=== PATIENT | male | born 1980 ===

== ENCOUNTER 2020-09-05 10:31 | Inpatient (IN) | payer SELFPAY ==
[2020-09-05 11:03] LABS: Basophils # (Auto) 0.1 K/mm3 (0.0-0.1); Basophils % (Auto) 0.4 % (0.0-1.8); Eosinophils # (Auto) 0.1 K/mm3 (0.0-0.4); Eosinophils % (Auto) 0.6 % (0.0-4.3); Hematocrit 47.3 % (35.5-45.6); Hemoglobin 16.4 gm/dl (11.8-15.2); Lymphocytes # (Auto) 1.9 K/mm3 (1.2-5.4); Lymphocytes % (Auto) 13.1 % (13.4-35.0); Mean Corpuscular HGB Conc 35 % (32-34); Mean Corpuscular Volume 82 fl (84-94); Monocytes # (Auto) 1.1 K/mm3 (0.0-0.8); Monocytes % (Auto) 7.1 % (0.0-7.3); Platelet Count 238 K/mm3 (140-440); Red Blood Count 5.77 M/mm3 (3.65-5.03); Red Cell Distribution Width 13.2 % (13.2-15.2)
[2020-09-05 11:24] LABS: Alanine Aminotransferase 26 units/L (7-56); Albumin 4.4 g/dL (3.9-5); BUN/Creatinine Ratio 13; Blood Urea Nitrogen 10 mg/dL (9-20); Calcium 9.7 mg/dL (8.4-10.2); Hemolysis Index 6
[2020-09-05] MEDS ORDERED: MORPHINE 2 MG/1 ML INJ IV ONE (12:35)
[2020-09-05] MEDS ORDERED: PANTOPRAZOLE 40 MG INJ IV ONE (12:35)
[2020-09-05] MEDS ORDERED: ONDANSETRON 4 MG/2 ML INJ IV ONE (12:35)
[2020-09-05] MEDS ORDERED: SODIUM CHLORIDE 0.9% 1000 ML 1,000 ML IV ONE (12:35)
--- NOTE | 2020-09-05 12:41 | Emergency Department Report ---
ED Abdominal Pain HPI - General Chief Complaint: Abdominal Pain Stated Complaint: LOW ABDOMINAL PAIN Time Seen by Provider: 09/05/20 12:29 Source: patient Mode of arrival: Ambulatory Limitations: No Limitations - History of Present Illness Initial Comments: This is a Polish-speaking 40-year-old man who presents with acute abdominal pain beginning at about 4 in the afternoon yesterday. It has been constant and persistent. Patient states she has had no bowel movement. He does not complain of nausea nor vomiting. He does not report fever or chills. The abdominal pain was somewhat radiating to his groin area. He has no history of kidney stone. He stated that he heard a lot of gas passing in his abdominal cavity, apparently borborygmus again no bowel movement and no vomiting. Patient denies previous abdominal surgery. States he takes no routine medications. He denies chronic medical problems. MD Complaint: abdominal pain -: Sudden Location: LLQ Radiation: other (Scrotal) Severity: severe Quality: aching Consistency: constant Improves With: nothing Worsens With: other (Did not attempt to eat) Associated Symptoms: denies other symptoms - Related Data Allergies Allergy/AdvReac Type Severity Reaction Status Date / Time No Known Allergies Allergy Unverified 09/05/20 10:48 ED Review of Systems ROS: Stated complaint: LOW ABDOMINAL PAIN Other details as noted in HPI Constitutional: denies: chills, fever Eyes: denies: eye pain, vision change ENT: denies: ear pain, throat pain Respiratory: denies: cough, shortness of breath, wheezing Cardiovascular: denies: chest pain, palpitations Endocrine: no symptoms reported Gastrointestinal: abdominal pain. denies: nausea, diarrhea Genitourinary: denies: urgency, dysuria Musculoskeletal: denies: back pain, joint swelling, arthralgia Skin: denies: rash, lesions Neurological: denies: headache, weakness, paresthesias Psychiatric: denies: anxiety, depression Hematological/Lymphatic: denies: easy bleeding, easy bruising ED Past Medical Hx - Past Medical History Previous Medical History?: No - Surgical History Past Surgical History?: No - Social History Substance Use Type: None ED Physical Exam - General Limitations: No Limitations General appearance: alert, other (Uncomfortable) - Head Head exam: Present: atraumatic, normocephalic - Eye Eye exam: Present: normal appearance. Absent: scleral icterus - ENT ENT exam: Present: mucous membranes moist - Neck Neck exam: Present: normal inspection. Absent: meningismus - Respiratory Respiratory exam: Present: normal lung sounds bilaterally. Absent: respiratory distress - Cardiovascular Cardiovascular Exam: Present: regular rate, normal rhythm. Absent: systolic murmur, diastolic murmur, rubs, gallop - GI/Abdominal GI/Abdominal exam: Present: soft, distended, tenderness (point of maximum intensity left lower quadrant), rebound (Appears to have rebound), normal bowel sounds - Rectal Rectal exam: Present: deferred - Extremities Exam Extremities exam: Present: normal inspection - Back Exam Back exam: Present: normal inspection - Neurological Exam Neurological exam: Present: alert, oriented X3, CN II-XII intact. Absent: motor sensory deficit - Psychiatric Psychiatric exam: Present: normal affect, normal mood - Skin Skin exam: Present: warm, dry, intact, normal color. Absent: rash ED Course Vital Signs 09/05/20 09/05/20 09/05/20 12:41 12:45 12:47 Temperature Pulse Rate 77 74 Respiratory 15 19 18 Rate Blood Pressure 125/90 O2 Sat by Pulse 98 100 Oximetry 09/05/20 09/05/20 09/05/20 13:00 13:07 13:09 Temperature 97.6 F Pulse Rate 78 Respiratory 11 L 18 Rate Blood Pressure 131/89 O2 Sat by Pulse 99 99 Oximetry - Reevaluation(s) Reevaluation #1: Discussed with GI. They recommend admission for IV antibiotics and further care. Dr. Hurtado hospitalist informed. 09/05/20 15:08 ED Medical Decision Making - Lab Data Result diagrams: 09/05/20 10:55 09/05/20 10:55 Laboratory Results - last 24 hr 09/05/20 09/05/20 09/05/20 10:55 10:55 12:53 WBC 14.8 H RBC 5.77 H Hgb 16.4 H Hct 47.3 H MCV 82 L MCH 29 MCHC 35 H RDW 13.2 Plt Count 238 Lymph % (Auto) 13.1 L [place] % (Auto) 7.1 Eos % (Auto) 0.6 Baso % (Auto) 0.4 Lymph # (Auto) 1.9 [place] # (Auto) 1.1 H Eos # (Auto) 0.1 Baso # (Auto) 0.1 Seg Neutrophils % 78.8 H Seg Neutrophils # 11.6 H PT INR APTT Sodium 137 Potassium 4.7 Chloride 96.7 L Carbon Dioxide 31 H Anion Gap 14 BUN 10 Creatinine 0.8 Estimated GFR > 60 BUN/Creatinine Ratio 13 Glucose 92 Calcium 9.7 Magnesium Total Bilirubin 0.50 AST 17 ALT 26 Alkaline Phosphatase 78 Total Protein 7.6 Albumin 4.4 Albumin/Globulin Ratio 1.4 Lipase Urine Color Urine Turbidity Urine pH Ur Specific [place] Urine Protein Urine Glucose (UA) Urine Ketones Urine Blood Urine Nitrite Urine Bilirubin Urine Urobilinogen Ur Leukocyte Esterase Urine WBC (Auto) Urine RBC (Auto) Blood Type A POSITIVE Antibody Screen Negative 09/05/20 09/05/20 09/05/20 12:53 12:53 13:29 WBC RBC Hgb Hct MCV MCH MCHC RDW Plt Count Lymph % (Auto) [place] % (Auto) Eos % (Auto) Baso % (Auto) Lymph # (Auto) [place] # (Auto) Eos # (Auto) Baso # (Auto) Seg Neutrophils % Seg Neutrophils # PT 13.4 INR 1.00 APTT 33.7 Sodium Potassium Chloride Carbon Dioxide Anion Gap BUN Creatinine Estimated GFR BUN/Creatinine Ratio Glucose Calcium Magnesium 1.90 Total Bilirubin AST ALT Alkaline Phosphatase Total Protein Albumin Albumin/Globulin Ratio Lipase 25 Urine Color Yellow Urine Turbidity Clear Urine pH 8.0 H Ur Specific [place] 1.014 Urine Protein <15 mg/dl Urine Glucose (UA) Neg Urine Ketones Neg Urine Blood Neg Urine Nitrite Neg Urine Bilirubin Neg Urine Urobilinogen < 2.0 Ur Leukocyte Esterase Neg Urine WBC (Auto) < 1.0 Urine RBC (Auto) 3.0 Blood Type Antibody Screen - Radiology Data Radiology results: report reviewed, image reviewed FINDINGS: CT abdomen with contrast demonstrates normal appearance of the liver, spleen, pancreas, kidneys, and adrenal glands. Gallbladder appears grossly unremarkable. No biliary dilatation. No hydronephrosis or renal mass. CT pelvis with contrast demonstrates normal appearance of the appendix. There is moderate inflammatory change involving the mid sigmoid colon consistent with acute diverticulitis. Mild to moderate diverticulosis is present throughout the sigmoid colon. No evidence for diverticular abscess, free fluid, or free air. The remainder of the GI tract is unremarkable. Visualized lung bases are clear. No acute osseous abnormality. IMPRESSION: 1. Acute diverticulitis involving the mid sigmoid colon. No evidence of diverticular abscess. 2. Moderate diverticulosis throughout the sigmoid colon. 3. No other significant finding. Critical care attestation.: If time is entered above; I have spent that time in minutes in the direct care of this critically ill patient, excluding procedure time. ED Disposition Clinical Impression: Sigmoid diverticulitis Disposition: OP ADMIT IP TO THIS HOSP Is pt being admited?: Yes Does the pt Need Aspirin: No Condition: Stable Time of Disposition: 15:08
--- NOTE | 2020-09-05 13:19 | XRay Report ---
CHEST 1 VIEW INDICATION / CLINICAL INFORMATION: hypertension. COMPARISON: None available. FINDINGS: SUPPORT DEVICES: None. HEART / MEDIASTINUM: No significant abnormality. LUNGS / PLEURA: No significant pulmonary or pleural abnormality. No pneumothorax. ADDITIONAL FINDINGS: No significant additional findings. IMPRESSION: 1. No acute findings. Signer Name: Tiffany Garcia MD Signed: 09/05/2020 1:14 PM Workstation Name: [id number]
[2020-09-05 13:22] LABS: Partial Thromboplastin Time 33.7 Sec. (24.2-36.6)
[2020-09-05 13:42] LABS: Bilirubin,Urine NEG (Negative); Blood,Urine NEG (Negative); Color,Urine Yellow (Yellow); Protein,Urine <15 mg/dL mg/dL (Negative); Urobilinogen,Urine < 2.0 mg/dL (<2.0); WBC,Urine < 1.0 /HPF (0.0-6.0)
[2020-09-05] MEDS ORDERED: PIPERACIL/TAZOBACTA 4.5/NS 100 4.5 GM/100 ML VIAL IV ONE (13:43)
--- NOTE | 2020-09-05 14:36 | Cat Scan Report ---
CT abdomen pelvis w con INDICATION / CLINICAL INFORMATION: Left lower quadrant pain, peritonitis. TECHNIQUE: Axial CT imaging of abdomen and pelvis was obtained with IV contrast. Coronal and sagittal reformatte d imaging obtained and reviewed. All CT scans at this location are performed using CT dose reduction for ALARA by means of automated exposure control. COMPARISON: None available. FINDINGS: CT abdomen with contrast demonstrates normal appearance of the liver, spleen, pancreas, kidneys, and adrenal glands. Gallbladder appears grossly unremarkable. No biliary dilatation. No hydronephrosis or renal mass. CT pelvis with contrast demonstrates normal appearance of the appendix. There is moderate inflammator y change involving the mid sigmoid colon consistent with acute diverticulitis. Mild to moderate diver ticulosis is present throughout the sigmoid colon. No evidence for diverticular abscess, free fluid, or free air. The remainder of the GI tract is unremarkable. Visualized lung bases are clear. No acute osseous abnormality. IMPRESSION: 1. Acute diverticulitis involving the mid sigmoid colon. No evidence of diverticular abscess. 2. Moderate diverticulosis throughout the sigmoid colon. 3. No other significant finding. Signer Name: Tiffany Garcia MD Signed: 09/05/2020 2:32 PM Workstation Name: [id number]
[2020-09-05] MEDS ORDERED: metroNIDAZOLE/NS 500 MG/100 ML 500 MG/100 ML BAG IV SCH (15:00)
--- NOTE | 2020-09-05 15:08 | History and Physical Report ---
History of Present Illness Chief complaint: My stomach hurts History of present illness: 40-year-old male with obesity presents to ED for evaluation. Patient states that he has experienced abdominal pain over the past 1 day with persistent symptoms over the same timeframe. Patient states that his pain is 56/10, con stant, localized to the left lower quadrant, without exacerbating or alleviating factors. Patient acknowledges nausea, flatus. Patient transported to [facility] via private vehicle for further care and evaluation of the aforementioned symptoms. Patient seen and evaluated in the emergency department. Lab and imaging studies reviewed. Patient underwent CT scan of the abdomen and pelvis which revealed sigmoid diverticulitis. GI team consulted in ED. Patient admitted to surgical floor and initiated on IV antibiotic therapy due to increased risk of worsening symptoms. Patient denies fever, chills, chest pain, palpitation, productive cough, skin rash, recent ill contacts, or known exposure to COVID-19. No prior admission for review. No medication listed at time of admission for reconciliation. Past History Past Medical History: No medical history Past Surgical History: No surgical history, Other (Reviewed) Social history: , lives with family Family history: hypertension Medications and Allergies Allergies Allergy/AdvReac Type Severity Reaction Status Date / Time No Known Allergies Allergy Unverified 09/05/20 10:48 Home Medications Medication Instructions Recorded Confirmed Last Taken Type No Known Home Medications [No 09/05/20 09/05/20 Unknown History Reported Home Medications] Active Meds: Active Medications Metronidazole (Flagyl 500 Mg/100 Ml) 500 mg in 100 mls @ 100 mls/hr IV Q8H [facility]; Protocol Last Admin: 09/05/20 15:03 Dose: 100 mls/hr Documented by: Review of Systems Constitutional: no weight loss, no weight gain, no fever, no chills Ears, nose, mouth and throat: no ear pain, no ear discharge, no tinnitis, no decreased hearing, no nose pain, no nasal congestion Cardiovascular: no chest pain, no orthopnea, no palpitations, no rapid/irregular heart beat, no edema Respiratory: no cough, no cough with sputum, no excessive sputum, no hemoptysis Gastrointestinal: abdominal pain, nausea, no vomiting, no constipation, no melena, no hematochezia, no early satiety Genitourinary Male: no hematuria, no flank pain, no discharge, no urinary frequency, no urinary hesitancy Rectal: no pain, no incontinence, no bleeding Musculoskeletal: no neck stiffness, no neck pain, no shooting arm pain, no arm numbness/tingling, no low back pain, no shooting leg pain Integumentary: no rash, no pruritis, no redness, no sores, no wounds Neurological: no transient paralysis, no paralysis, no weakness, no parathesias, no numbness, no tingling Psychiatric: no anxiety, no memory loss, no change in sleep habits, no sleep disturbances, no insomnia, no hypersomnia Endocrine: no cold intolerance, no heat intolerance, no polyphagia, no excessive thirst, no polydipsia, no polyuria Hematologic/Lymphatic: no easy bruising, no easy bleeding, no lymphadenopathy Allergic/Immunologic: no wheezing, no persistent infections, no angioedema Exam - Constitutional Vitals: Temp Pulse Resp BP Pulse Ox 97.6 F 78 18 131/89 99 09/05/20 13:09 09/05/20 13:00 09/05/20 13:07 09/05/20 13:00 09/05/20 13:07 General appearance: Present: mild distress - EENT Eyes: Present: PERRL ENT: hearing intact, clear oral mucosa - Neck Neck: Present: supple, normal ROM - Respiratory Respiratory effort: normal Respiratory: bilateral: CTA - Cardiovascular Heart Sounds: Present: S1 & S2. Absent: rub, click - Extremities Extremities: pulses symmetrical, No edema Peripheral Pulses: within normal limits - Abdominal General gastrointestinal: Present: soft, non-tender, non-distended, normal bowel sounds Male genitourinary: Present: normal - Integumentary Integumentary: Present: clear, warm, dry - Musculoskeletal Musculoskeletal: gait normal, strength equal bilaterally - Psychiatric Psychiatric: appropriate mood/affect, intact judgment & insight - Neurologic Neurologic: CNII-XII intact, moves all extremities Results - Labs CBC & Chem 7: 09/05/20 10:55 09/05/20 10:55 Labs: Abnormal lab results 09/05/20 09/05/20 09/05/20 Range/Units 10:55 10:55 13:29 WBC 14.8 H (4.5-11.0) K/mm3 RBC 5.77 H (3.65-5.03) M/mm3 Hgb 16.4 H (11.8-15.2) gm/dl Hct 47.3 H (35.5-45.6) % MCV 82 L (84-94) fl MCHC 35 H (32-34) % Lymph % (Auto) 13.1 L (13.4-35.0) % [place] # (Auto) 1.1 H (0.0-0.8) K/mm3 Seg Neutrophils % 78.8 H (40.0-70.0) % Seg Neutrophils # 11.6 H (1.8-7.7) K/mm3 Chloride 96.7 L (98-107) mmol/L Carbon Dioxide 31 H (22-30) mmol/L Urine pH 8.0 H (5.0-7.0) Assessment and Plan - Patient Problems (1) Sigmoid diverticulitis Current Visit: Yes Status: Acute Plan to address problem: CBC, CMP, CT scan abdomen and pelvis, IV antibiotic therapy, gastroenterology t eam consulted in ED, bowel rest, IV fluid resuscitation therapy, n.p.o. status. (2) Systemic inflammatory response syndrome Current Visit: Yes Status: Acute Plan to address problem: CBC, BMP, IV antibiotic therapy, repeat CBC in a.m. (3) Obesity Current Visit: Yes Status: Acute Qualifiers: Body mass index: BMI 30.0-30.9 Plan to address problem: Balanced diet, increase physical activity at discharge. (4) DVT prophylaxis Current Visit: Yes Status: Acute Plan to address problem: SCD to bilateral lower extremities while in bed, patient is ambulatory
[2020-09-05] MEDS ORDERED: ONDANSETRON 4 MG/2 ML INJ IV PRN (15:09)
[2020-09-05] MEDS ORDERED: ACETAMINOPHEN 325 MG TAB PO PRN (15:09)
[2020-09-05] MEDS: MORPHINE 4 MG/1 ML INJ IV PRN ×2 (17:10→23:40)
[2020-09-05] MEDS: oxyCODONE /ACETAMINOPHEN 5-325MG TAB PO PRN (20:01)
[2020-09-05] MEDS: metroNIDAZOLE/NS 500 MG/100 ML 500 MG/100 ML BAG IV SCH (22:25)
[2020-09-06] MEDS: oxyCODONE /ACETAMINOPHEN 5-325MG TAB PO PRN ×4 (03:28→22:54)
[2020-09-06] MEDS: SODIUM CHLORIDE 0.9% 1000 ML 1,000 ML IV SCH ×3 (03:31→22:14)
[2020-09-06] MEDS: metroNIDAZOLE/NS 500 MG/100 ML 500 MG/100 ML BAG IV SCH ×3 (06:42→22:15)
[2020-09-06] MEDS: MORPHINE 4 MG/1 ML INJ IV PRN ×2 (06:43→18:20)
[2020-09-06 08:08] LABS: Basophils % (Auto) 0.2 % (0.0-1.8); Eosinophils # (Auto) 0.1 K/mm3 (0.0-0.4); Eosinophils % (Auto) 0.9 % (0.0-4.3); Hematocrit 45.3 % (35.5-45.6); Hemoglobin 15.5 gm/dl (11.8-15.2); Lymphocytes # (Auto) 1.7 K/mm3 (1.2-5.4); Lymphocytes % (Auto) 16.3 % (13.4-35.0); Mean Corpuscular HGB Conc 34 % (32-34); Mean Corpuscular Volume 84 fl (84-94); Monocytes # (Auto) 0.8 K/mm3 (0.0-0.8); Monocytes % (Auto) 7.5 % (0.0-7.3); Platelet Count 211 K/mm3 (140-440); Red Blood Count 5.38 M/mm3 (3.65-5.03); Red Cell Distribution Width 13.2 % (13.2-15.2)
--- NOTE | 2020-09-06 08:46 | Progress Note ---
Assessment and Plan Assessment and plan: 40-year-old male with obesity presents to ED for evaluation. Patient states that he has experienced abdominal pain over the past 1 day with persistent symptoms over the same timeframe. Patient states that his pain is 56/10, constant, localized to the left lower quadrant, without exacerbating or allevi ating factors. Patient acknowledges nausea, flatus. Patient underwent CT scan of the abdomen and pelvis which revealed sigmoid diverticulitis. GI team consulted in ED. Patient admitted to surgical floor and initiated on IV antibiotic therapy due to increased risk of worsening symptoms. Patient denies fever, chills, chest pain, palpitation, productive cough, skin rash, recent ill contacts, or known exposure to COVID-19. No medication listed at time of admission for reconciliation. Sigmoid diverticulitis Current Visit: Yes Status: Acute Plan to address problem: CBC, CMP, CT scan abdomen and pelvis, IV antibiotic therapy, gastroenterology team consulted in ED, bowel rest, IV fluid resuscitation therapy, n.p.o. status. Surgical consult if needed Continue serial BP Exams. WBC improved. Systemic inflammatory response syndrome Current Visit: Yes Status: Acute Plan to address problem: CBC, BMP, IV antibiotic therapy, repeat CBC in a.m. Obesity Current Visit: Yes Status: Acute Qualifiers: Body mass index: BMI 30.0-30.9 Plan to address problem: Balanced diet, increase physical activity at discharge. DVT prophylaxis Current Visit: Yes Status: Acute Plan to address problem: SCD to bilateral lower extremities while in bed, patient is ambulatory History Interval history: Patient seen and examined resting, still with some abdominal pain. Hospitalist Physical - Physical exam Narrative exam: VITAL SIGNS: Reviewed. GENERAL: The patient appears normally developed, Vital signs as documented. HEAD: No signs of head trauma. EYES: Pupils are equal. Extraocular motions intact. EARS: Hearing grossly intact. MOUTH: Oropharynx is normal. NECK: No adenopathy, no JVD. CHEST: Chest with clear breath sounds bilaterally. No wheezes, rales, or rhonc hi. CARDIAC: Regular rate and rhythm. S1 and S2, without murmurs, gallops, or rubs. VASCULAR: No Edema. Peripheral pulses normal and equal in all extremities. ABDOMEN: Soft, tender to touch and non distended. No rebound or guarding, and no masses palpated. Bowel Sounds normal. MUSCULOSKELETAL: Good range of motion of all major joints. Extremities without clubbing, cyanosis or edema. NEUROLOGIC EXAM: Alert and oriented x 3 No focal sensory or strength deficits. Speech normal. Follows commands. PSYCHIATRIC: Mood normal. SKIN: detail exam as documented in skin assessment - Constitutional Vitals: Temp Pulse Resp BP Pulse Ox 98.2 F 60 17 125/84 98 09/05/20 20:00 09/05/20 20:00 09/05/20 20:00 09/05/20 20:00 09/05/20 20:00 General appearance: Present: mild distress Results - Labs CBC & Chem 7: 09/06/20 04:00 09/05/20 10:55 Labs: Laboratory Last Values WBC 10.2 K/mm3 (4.5-11.0) 09/06/20 04:00 RBC 5.38 M/mm3 (3.65-5.03) H 09/06/20 04:00 Hgb 15.5 gm/dl (11.8-15.2) H 09/06/20 04:00 Hct 45.3 % (35.5-45.6) 09/06/20 04:00 MCV 84 fl (84-94) 09/06/20 04:00 MCH 29 pg (28-32) 09/06/20 04:00 MCHC 34 % (32-34) 09/06/20 04:00 RDW 13.2 % (13.2-15.2) 09/06/20 04:00 Plt Count 211 K/mm3 (140-440) 09/06/20 04:00 Lymph % (Auto) 16.3 % (13.4-35.0) 09/06/20 04:00 [place] % (Auto) 7.5 % (0.0-7.3) H 09/06/20 04:00 Eos % (Auto) 0.9 % (0.0-4.3) 09/06/20 04:00 Baso % (Auto) 0.2 % (0.0-1.8) 09/06/20 04:00 Lymph # (Auto) 1.7 K/mm3 (1.2-5.4) 09/06/20 04:00 [place] # (Auto) 0.8 K/mm3 (0.0-0.8) 09/06/20 04:00 Eos # (Auto) 0.1 K/mm3 (0.0-0.4) 09/06/20 04:00 Baso # (Auto) 0.0 K/mm3 (0.0-0.1) 09/06/20 04:00 Seg Neutrophils % 75.1 % (40.0-70.0) H 09/06/20 04:00 Seg Neutrophils # 7.7 K/mm3 (1.8-7.7) 09/06/20 04:00 PT 13.4 Sec. (12.2-14.9) 09/05/20 12:53 INR 1.00 (0.87-1.13) 09/05/20 12:53 APTT 33.7 Sec. (24.2-36.6) 09/05/20 12:53 Sodium 137 mmol/L (137-145) 09/05/20 10:55 Potassium 4.7 mmol/L (3.6-5.0) 09/05/20 10:55 Chloride 96.7 mmol/L (98-107) L 09/05/20 10:55 Carbon Dioxide 31 mmol/L (22-30) H 09/05/20 10:55 Anion Gap 14 mmol/L 09/05/20 10:55 BUN 10 mg/dL (9-20) 09/05/20 10:55 Creatinine 0.8 mg/dL (0.8-1.3) 09/05/20 10:55 Estimated GFR > 60 ml/min 09/05/20 10:55 BUN/Creatinine Ratio 13 % 09/05/20 10:55 Glucose 92 mg/dL (75-100) 09/05/20 10:55 Calcium 9.7 mg/dL (8.4-10.2) 09/05/20 10:55 Magnesium 1.90 mg/dL (1.7-2.3) 09/05/20 12:53 Total Bilirubin 0.50 mg/dL (0.1-1.2) 09/05/20 10:55 AST 17 units/L (5-40) 09/05/20 10:55 ALT 26 units/L (7-56) 09/05/20 10:55 Alkaline Phosphatase 78 units/L (35-129) 09/05/20 10:55 Total Protein 7.6 g/dL (6.3-8.2) 09/05/20 10:55 Albumin 4.4 g/dL (3.9-5) 09/05/20 10:55 Albumin/Globulin Ratio 1.4 % 09/05/20 10:55 Lipase 25 units/L (13-60) 09/05/20 12:53 Urine Color Yellow (Yellow) 09/05/20 13:29 Urine Turbidity Clear (Clear) 09/05/20 13:29 Urine pH 8.0 (5.0-7.0) H 09/05/20 13:29 Ur Specific [place] 1.014 (1.003-1.030) 09/05/20 13:29 Urine Protein <15 mg/dl mg/dL (Negative) 09/05/20 13:29 Urine Glucose (UA) Neg mg/dL (Negative) 09/05/20 13:29 Urine Ketones Neg mg/dL (Negative) 09/05/20 13:29 Urine Blood Neg (Negative) 09/05/20 13:29 Urine Nitrite Neg (Negative) 09/05/20 13:29 Urine Bilirubin Neg (Negative) 09/05/20 13:29 Urine Urobilinogen < 2.0 mg/dL (<2.0) 09/05/20 13:29 Ur Leukocyte Esterase Neg (Negative) 09/05/20 13:29 Urine WBC (Auto) < 1.0 /HPF (0.0-6.0) 09/05/20 13:29 Urine RBC (Auto) 3.0 /HPF (0.0-6.0) 09/05/20 13:29 Blood Type A POSITIVE 09/05/20 12:53 Antibody Screen Negative 09/05/20 12:53 Gomez/IV: IV Catheter Type [Right INT / Saline Lock Forearm] Active Medications - Current Medications Current Medications: Generic Name Dose Route Start Last Admin Trade Name Freq PRN Reason Stop Dose Admin Acetaminophen 650 mg 09/05/20 15:09 Tylenol PO Q4H PRN Pain MILD(1-3)/Fever >100.5/CASILLAS Sodium Chloride 1,000 mls @ 125 mls/hr 09/05/20 15:15 09/06/20 03:31 Nacl 0.9% 1000 Ml IV 125 mls/hr DIRECT ALAN Administration Levofloxacin/Dextrose 500 mg in 100 mls @ 100 mls/hr 09/06/20 16:00 Levaquin 500mg/100ml IV Q24H ALAN Protocol Metronidazole 500 mg in 100 mls @ 100 mls/hr 09/05/20 23:00 09/06/20 06:42 Flagyl 500 Mg/100 Ml IV 100 mls/hr Q8H ALAN Administration Protocol Morphine Sulfate 2 mg 09/05/20 15:09 09/06/20 06:43 Morphine IV 2 mg Q6H PRN Administration Pain , Severe (7-10) Ondansetron HCl 4 mg 09/05/20 15:09 09/05/20 20:02 Zofran IV 4 mg Q8H PRN Administration Nausea And Vomiting Oxycodone/Acetaminophen 1 tab 09/05/20 15:09 09/06/20 03:28 Percocet 5/325 PO 1 tab Q6H PRN Administration Pain, Moderate (4-6) Sodium Chloride 10 ml 09/05/20 22:00 09/05/20 21:29 Sodium Chloride Flush Syringe 10 Ml IV 10 ml BID ALAN Administration Sodium Chloride 10 ml 09/05/20 15:09 Sodium Chloride Flush Syringe 10 Ml IV PRN PRN LINE FLUSH
--- NOTE | 2020-09-06 15:05 | Consultation ---
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 He was in his usual state of good health until 5 AM on September 04, when he developed left lower quadrant pain radiating into the left testicle. This persisted and after 24 hours, he decided to come to the emergency room. By then, it was no longer radiating into his left testicle. In the emergency room, CT scan showed sigmoid diverticulitis and he was started on antibiotics. He is currently feeling much better. He denies fevers chills sweats nausea or vomiting. Bowel movements usually are regular on the twice a day basis without any change. He does see occasional bright red blood on wiping. He denies any weight loss. He denies prior similar symptoms. Meds reviewed. Past History Past Medical History: No medical history Past Surgical History: No surgical history, Other (Reviewed) Social history: , lives with family, alcohol abuse (2 6pks beer/wk). denies: smoking Family history: hypertension Medications and Allergies Allergies Allergy/AdvReac Type Severity Reaction Status Date / Time No Known Allergies Allergy Unverified 09/05/20 10:48 Home Medications Medication Instructions Recorded Confirmed Last Taken Type No Known Home Medications [No 09/05/20 09/05/20 Unknown History Reported Home Medications] Active Meds: Active Medications Acetaminophen (Tylenol) 650 mg PO Q4H PRN PRN Reason: Pain MILD(1-3)/Fever >100.5/CASILLAS Sodium Chloride (Nacl 0.9% 1000 Ml) 1,000 mls @ 125 mls/hr IV DIRECT ALAN Last Admin: 09/06/20 11:40 Dose: 125 mls/hr Documented by: Levofloxacin/Dextrose (Levaquin 500mg/100ml) 500 mg in 100 mls @ 100 mls/hr IV Q24H ALAN; Protocol Metronidazole (Flagyl 500 Mg/100 Ml) 500 mg in 100 mls @ 100 mls/hr IV Q8H ALAN; Protocol Last Admin: 09/06/20 06:42 Dose: 100 mls/hr Documented by: Morphine Sulfate (Morphine) 2 mg IV Q6H PRN PRN Reason: Pain , Severe (7-10) Last Admin: 09/06/20 06:43 Dose: 2 mg Documented by: Ondansetron HCl (Zofran) 4 mg IV Q8H PRN PRN Reason: Nausea And Vomiting Last Admin: 09/05/20 20:02 Dose: 4 mg Documented by: Oxycodone/Acetaminophen (Percocet 5/325) 1 tab PO Q6H PRN PRN Reason: Pain, Moderate (4-6) Last Admin: 09/06/20 09:42 Dose: 1 tab Documented by: Sodium Chloride (Sodium Chloride Flush Syringe 10 Ml) 10 ml IV BID ALAN Last Admin: 09/06/20 10:45 Dose: Not Given Documented by: Sodium Chloride (Sodium Chloride Flush Syringe 10 Ml) 10 ml IV PRN PRN PRN Reason: LINE FLUSH Review of Systems All systems: negative (as noted in HPI) Exam - Constitutional Vitals: Temp Pulse Resp BP Pulse Ox 97.7 F 52 L 18 120/80 97 09/06/20 12:03 09/06/20 12:03 09/06/20 12:03 09/06/20 12:03 09/06/20 12:03 General appearance: Present: no acute distress - EENT Eyes: Present: PERRL, EOM intact ENT: hearing intact - Respiratory Respiratory effort: normal Respiratory: bilateral: CTA - Cardiovascular Rhythm: regular Heart Sounds: Present: S1 & S2 - Extremities Extremities: No edema - Abdominal General gastrointestinal: Present: soft, tender (Mild, diffuse, worst in LLQ) Results - Labs CBC & Chem 7: 09/06/20 04:00 09/05/20 10:55 Labs: Abnormal lab results 09/06/20 Range/Units 04:00 RBC 5.38 H (3.65-5.03) M/mm3 Hgb 15.5 H (11.8-15.2) gm/dl [place] % (Auto) 7.5 H (0.0-7.3) % Seg Neutrophils % 75.1 H (40.0-70.0) % - Imaging and Cardiology CT scan - abdomen: report reviewed (Mid-sigmoid diverticulitis) Assessment and Plan 1. Diverticulitis -first attack, and diagnosed by CT scan and symptoms. Patient is currently doing well and responding to antibiotic therapy. Lik elihood of other process such as perforated malignancy is much lower. -Advance diet, and if does well, can consider discharge to home tomorrow on oral antibiotic therapy for 10 days. -We will need outpatient colonoscopy approximately a month from now, after inflammation has healed. -Given relative youth with this first attack, patient is at high risk for recurrent attacks and elective sigmoid resection can be considered. In the meantime, patient needs to be on a high-fiber diet.
[2020-09-07] MEDS: MORPHINE 4 MG/1 ML INJ IV PRN ×3 (00:59→11:14)
[2020-09-07] MEDS: metroNIDAZOLE/NS 500 MG/100 ML 500 MG/100 ML BAG IV SCH (06:26)
[2020-09-07] MEDS: SODIUM CHLORIDE 0.9% 1000 ML 1,000 ML IV SCH (06:29)
--- NOTE | 2020-09-07 11:14 | Progress Note ---
Assessment and Plan 1. Diverticulitis -first attack, and diagnosed by CT scan and symptoms. Improving. Likelihood of other process such as perforated malignancy is much lower. -Advance diet and okay to D/C from GI standpoint, on oral abx. -We will need outpatient colonoscopy approximately a month from now, after inflammation has healed. -Given relative youth with this first attack, patient is at high risk for recurrent attacks and elective sigmoid resection can be considered. In the meantime, patient needs to be on a high-fiber diet. Subjective Date of service: 09/07/20 Interval history: Pt doing well. Deana po. Objective - Constitutional Vitals: Vital Signs - 12hr 09/07/20 09/07/20 09/07/20 00:58 04:25 07:19 Temperature 97.8 F 97.7 F 98.8 F Pulse Rate 51 L 58 L 59 L Respiratory 18 20 20 Rate Blood Pressure 122/86 121/82 138/90 O2 Sat by Pulse 100 99 99 Oximetry General appearance: Present: no acute distress - EENT Eyes: PERRL, EOM intact ENT: hearing intact - Respiratory Respiratory effort: normal - Gastrointestinal General gastrointestinal: Present: soft, tender (Mild, LLQ) - Labs CBC & Chem 7: 09/06/20 04:00 09/05/20 10:55 Medications & Allergies - Medications Allergies/Adverse Reactions: Allergies No Known Allergies Allergy (Unverified 09/05/20 10:48) Home Medications: Home Medications Medication Instructions Recorded Confirmed Last Taken Type No Known Home Medications [No 09/05/20 09/05/20 Unknown History Reported Home Medications] Active Medications: Generic Name Dose Route Start Last Admin Trade Name Freq PRN Reason Stop Dose Admin Acetaminophen 650 mg 09/05/20 15:09 Tylenol PO Q4H PRN Pain MILD(1-3)/Fever >100.5/CASILLAS Sodium Chloride 1,000 mls @ 125 mls/hr 09/05/20 15:15 09/07/20 06:29 Nacl 0.9% 1000 Ml IV 125 mls/hr DIRECT ALAN Administration Levofloxacin/Dextrose 500 mg in 100 mls @ 100 mls/hr 09/06/20 16:00 09/06/20 20:14 Levaquin 500mg/100ml IV Infused Q24H ALAN Infusion Protocol Metronidazole 500 mg in 100 mls @ 100 mls/hr 09/05/20 23:00 09/07/20 06:26 Flagyl 500 Mg/100 Ml IV 100 mls/hr Q8H ALAN Administration Protocol Morphine Sulfate 2 mg 09/05/20 15:09 09/07/20 03:23 Morphine IV 2 mg Q6H PRN Administration Pain , Severe (7-10) Ondansetron HCl 4 mg 09/05/20 15:09 09/05/20 20:02 Zofran IV 4 mg Q8H PRN Administration Nausea And Vomiting Oxycodone/Acetaminophen 1 tab 09/05/20 15:09 09/06/20 22:54 Percocet 5/325 PO 1 tab Q6H PRN Administration Pain, Moderate (4-6) Sodium Chloride 10 ml 09/05/20 22:00 09/06/20 22:15 Sodium Chloride Flush Syringe 10 Ml IV 10 ml BID ALAN Administration Sodium Chloride 10 ml 09/05/20 15:09 Sodium Chloride Flush Syringe 10 Ml IV PRN PRN LINE FLUSH
--- NOTE | 2020-09-07 11:38 | Discharge Summary ---
Providers - Providers Date of Admission: 09/05/20 15:43 Attending physician: SHELTON SABILLON MD 09/05/20 14:49 Consult to Physician [CONS] Urgent Comment: Consulting Provider: MAT MARTINEZ Physician Instructions: Reason For Exam: Sigmoid Diverticulitis Primary care physician: BIOMEDICAL REPAIR TECHNICIAN Hospitalization Reason for admission: diverculitis Condition: Stable Hospital course: 40-year-old male with obesity presents to ED for evaluation. Patient states that he has experienced abdominal pain over the past 1 day with persistent symptoms over the same timeframe. Patient states that his pain is 56/10, constant, localized to the left lower quadrant, without exacerbating or alleviating factors. Patient acknowledges nausea, flatus. Patient underwent CT scan of the abdomen and pelvis which revealed sigmoid diverticulitis. GI team consulted in ED. Patient admitted to surgical floor and initiated on IV antibiotic therapy due to increased risk of worsening symptoms. Patient denies fever, chills, chest pain, palpitation, productive cough, skin rash, recent ill contacts, or known exposure to COVID-19. No medication listed at time of admission for reconciliation. Tolerated diet Patient was seen by GI and per their document. Diverticulitis -first attack, and diagnosed by CT scan and symptoms. Improving. Likelihood of other process such as perforated malignancy is much lower. -Advance diet and okay to D/C from GI standpoint, on oral abx. -We will need outpatient colonoscopy approximately a month from now, after inflammation has healed. -Given relative youth with this first attack, patient is at high risk for recurrent attacks and elective sigmoid resection can be considered. In the meantime, patient needs to be on a high-fiber diet. Sigmoid diverticulitis Systemic inflammatory response syndrome Obesity Disposition: DC-01 TO HOME OR SELFCARE Time spent for discharge: 35 mins Core Measure Documentation - Palliative Care Palliative Care/ Comfort Measures: Not Applicable - Core Measures Any of the following diagnoses?: none Exam - Physical Exam Narrative exam: VITAL SIGNS: Reviewed. GENERAL: The patient appears normally developed, Vital signs as documented. HEAD: No signs of head trauma. EYES: Pupils are equal. Extraocular motions intact. EARS: Hearing grossly intact. MOUTH: Oropharynx is normal. NECK: No adenopathy, no JVD. CHEST: Chest with clear breath sounds bilaterally. No wheezes, rales, or rhonchi. CARDIAC: Regular rate and rhythm. S1 and S2, without murmurs, gallops, or rubs. VASCULAR: No Edema. Peripheral pulses normal and equal in all extremities. ABDOMEN: Soft, non tender and non distended. No rebound or guarding, and no masses palpated. Bowel Sounds normal. MUSCULOSKELETAL: Good range of motion of all major joints. Extremities without clubbing, cyanosis or edema. NEUROLOGIC EXAM: Alert and oriented x 3 No focal sensory or strength deficits. Speech normal. Follows commands. PSYCHIATRIC: Mood normal. SKIN: detail exam as documented in skin assessment - Constitutional Vitals: Temp Pulse Resp BP Pulse Ox 98.8 F 59 L 20 138/90 99 09/07/20 07:19 09/07/20 07:19 09/07/20 07:19 09/07/20 07:19 09/07/20 07:19 Plan Activity: advance as tolerated, fall precautions Diet: low fat, advance as tolerated (FULL LIQUID FOR 3 DAYS THEN SOFT DIET FOR 3 DAYS AND ADVANCE TOLERATED) Special Instructions: record daily weights, record daily BP diary Follow up with: PRIMARY CAREMD [Primary Care Provider] - 3-5 Days NABILA BANUELOS MD [Staff Physician] - 7 Days Prescriptions: Ciprofloxacin HCl [Ciprofloxacin TAB] 500 mg PO Q12HR #20 tab metroNIDAZOLE [Flagyl] 500 mg PO Q8HR #30 tablet oxyCODONE /ACETAMINOPHEN [Percocet 5/325 mg] 1 tab PO Q6H PRN #10 tablet PRN Reason: Pain, Moderate (4-6)
[2020-09-07] MEDS: oxyCODONE /ACETAMINOPHEN 5-325MG TAB PO PRN ×3 (12:05→17:10)
[2020-09-07 17:43] VITALS: BP 144/83
== END 2020-09-07 17:15 | disposition home or self-care (01) | DRG 392 ==
LOC: ED 10:31 → 3B-SURG 15:43
PROVIDERS: ADMIT Internal Medicine; ATTEND Internal Medicine
DX: K57.32 Diverticulitis of large intestine without perforation or abscess without bleeding (principal); R65.10 Systemic inflammatory response syndrome (SIRS) of non-infectious origin without acute organ dysfunction; E66.9 Obesity, unspecified; Z68.30 Body mass index [BMI] 30.0-30.9, adult; Z82.49 Family history of ischemic heart disease and other diseases of the circulatory system
CPT/HCPCS: 36415; 71045; 74177; 80053; 81001; 83690; 83735; 85025; 85610; 85730; 86850; 86900; 86901; 93005; 96374; 96375; G0378; C9113; J1956; J2270; J2405; J2543; J7030; Q9967